=== PATIENT | male | born 1990 | race Hispanic/Latino ===

== ENCOUNTER 2018-04-23 10:07 | Day surgery (SDC) | payer BC ==
[2018-04-23] MEDS ORDERED: HEPARIN SUB-Q NR ×2 (11:00→12:00)
[2018-04-23] MEDS ORDERED: ceFAZolin 2 GM in NACL 0.9% 100 ML IV ONE (11:30)
[2018-04-23] MEDS ORDERED: ANCEF/STERILE WATER 2 GM/20 ML IV NR (12:00)
[2018-04-23] MEDS ORDERED: LACTATED RINGERS 1,000 ML IV SCH (12:00)
[2018-04-23] MEDS ORDERED: VERSED IV NR (12:00)
[2018-04-23] MEDS ORDERED: SUBLIMAZE ONE (12:14)
[2018-04-23] MEDS ORDERED: XYLOCAINE MPF 2% ONE (12:14)
[2018-04-23] MEDS ORDERED: DIPRIVAN 10 MG/ML IV ONE ×2 (12:14→13:07)
[2018-04-23] MEDS ORDERED: DECADRON ONE (12:18)
[2018-04-23] MEDS ORDERED: ZOFRAN ONE (12:18)
[2018-04-23] MEDS ORDERED: MARCAINE-EPI 0.5%-1:200,000 INFILTRATI ONE (13:04)
[2018-04-23] MEDS ORDERED: WATER FOR IRRIG STERILE IR ONE (13:30)
[2018-04-23] MEDS ORDERED: MARCAINE-EPI/PF 0.5%-1:200,000 INFILTRATI ONE ×2 (13:30)
[2018-04-23] MEDS ORDERED: NACL 0.9% IR ONE (13:30)
[2018-04-23] MEDS ORDERED: ROBINUL ONE (14:13)
[2018-04-23] MEDS ORDERED: TORADOL ONE (14:13)
--- NOTE | 2018-04-23 14:44 | Procedure Note ---
Date of procedure: 04/23/18 Pre-op diagnosis: RIH Post-op diagnosis: same (Indirect) Procedure: Open repair of indirect RIH with Parietex plug and patch mesh Description of procedure: Pt was placed supine on the OR table. General anesthesia by LMA was administered. A feldman catheter was inserted. RLQ was prepped and draped. Skin and SQ tissue at the proposed incision were infiltrated with 8 ml of 0.5% Marcaine with epinephrine. A curvilinear incision was made in the right suprapubic crease. SQ tissue was transected with the Bovie. External oblique aponeurosis was exposed. The aponeurosis was incised over the spermatic canal. The cord was dissected circumferentially at the level of the pubic tubercle. There was no evidence of a direct hernia. The cord was skeletonized and an indirect sac quickly identified. The sac was dissected off of the cord structures and was ligated high with a purse string suture of 0-silk. A Parietex plug and patch repair was then performed (Lot [id number] and expiration date 06/17/2022) with the plug and patch secured to the fascia with interrupted sutures of 0-Ethibond. External oblique aponeurosis was re-approximated with a running suture of 3-0 Vicryl. Skin was approximated with a running subcuticular suture of 4-0 Monocryl. Mastisol and steri-strips were applied followed by a sterile absorbent dressing. Pt tolerated the procedure well. He was taken to PACU in stable condition. Anesthesia: other (LMA) Surgeon: RACHEAL GRIJALVA Estimated blood loss: minimal Pathology: list (Hernia sac) Specimen disposition: to lab Condition: stable Disposition: PACU
[2018-04-23] MEDS ORDERED: DILAUDID IV PRN (14:50)
[2018-04-23] MEDS ORDERED: ZOFRAN IV PRN (14:50)
[2018-04-23 16:16] VITALS: BP 130/89
== END 2018-04-23 16:15 | disposition home or self-care (01) ==
LOC: OR 10:07
PROVIDERS: ATTEND Surgery
DX: K40.90 Unilateral inguinal hernia, without obstruction or gangrene, not specified as recurrent (principal); Z72.89 Other problems related to lifestyle; Z87.891 Personal history of nicotine dependence
CPT/HCPCS: 49505; 88302; C1781; J0690; J1100; J1170; J1644; J1885; J2250; J2405; J2704; J3010; J7120